=== PATIENT | male | born 1945 | race Caucasian/White ===

== ENCOUNTER 2017-03-31 05:59 | Day surgery (SDC) | payer MEDICARE, OTHER ==
[2017-03-24 12:13] LABS: HEMATOCRIT 37.1 % (40.0-51.0); HEMOGLOBIN 11.9 g/dL (13.6-17.8)
[2017-03-24 12:28] LABS: CALCIUM, SERUM 9.2 MG/DL (8.5-10.4); CHLORIDE, SERUM 102 MMOL/L (96-112); CO2 (CARBON DIOXIDE) 28 MMOL/L (24-34); POTASSIUM, SERUM 4.3 MMOL/L (3.5-5.3); SODIUM, SERUM 137 MMOL/L (135-148)
[2017-03-24 12:29] LABS: BUN (BLOOD UREA NITROGEN) 26 MG/DL (6-23); CREATININE 1.43 MG/DL (0.70-1.30); GFR AFRICAN AMERICAN 57 ML/MIN (>=60); GFR NON AFRICAN AMERICAN 49 ML/MIN (>=60); GLUCOSE, SERUM 168 MG/DL (60-99)
--- NOTE | ~2017-03-31 | OP ---
Record Of Operation [facility] [address] [place]. [address] NAME: LUIS ORLANDO : 45 STATUS : [facility]#: [id number] AGE: 71 ADM/REG DATE : 03/31/17 MR#: [id number] REPORT SERV DATE: 04/06/17 DICTATED BY: AGUILA MCKAY DATE: 03/31/17 REPORT STATUS : Draft TRANSCRIBED BY: MODL DATE: 03/31/17 DATE OF PROCEDURE: 03/31/2017 SURGEON: Aguila Mckay MD OPERATIVE [employer]IN[employer]LTRY INSPECTOR: SHANNAN Shaffer. COMPLICATIONS: None. ESTIMATED BLOOD LOSS: Minimal. DISPOSITION: Stable to recovery room. ANESTHESIA: General. PREOPERATIVE DIAGNOSES: 1. Right shoulder pain. 2. Full-thickness supraspinatus rotator cuff tear. 3. Degenerative labral tear. 4. Subacromial impingement. 5. Acromioclavicular joint osteoarthritis with impingement. POSTOPERATIVE DIAGNOSES: 1. Right shoulder pain. 2. Full-thickness supraspinatus rotator cuff tear. 3. Degenerative labral tear. 4. Subacromial impingement. 5. Acromioclavicular joint osteoarthritis with impingement. OPERATIVE PROCEDURE: 1. Right shoulder examination under anesthesia. 2. Right shoulder arthroscopy. 3. Extensive debridement of degenerative labral tear. 4. Full-thickness supraspinatus rotator cuff repair using a single row technique. 5. Subacromial decompression. 6. Distal clavicular resection (approximately 1 cm). DESCRIPTION OF PROCEDURE: The diagnoses listed above as well as recommended surgical procedure, risks, and benefits, thereof discussed in full detail with Luis Orlando and family on the morning of 03/31/2017. The patient and family asked appropriate questions, which were answered to their satisfaction. Informed consent was signed, witnessed, and placed in the chart. The right upper extremity was marked for confirmation and the patient was wheeled to the operative arena where general anesthesia was administered. The patient was placed in a lateral decubitus position with an axillary roll in place. All nonoperative extremities were well padded and secured for the duration of case. Record Of Operation [facility] [address] [place]. [address] NAME: LUIS ORLANDO : 45 STATUS : [facility] PAT#: [id number] AGE: 71 ADM/REG DATE : 03/31/17 MR#: [id number] REPORT SERV DATE: 04/06/17 DICTATED BY: AGUILA MCKAY DATE: 03/31/17 REPORT STATUS : Draft TRANSCRIBED BY: ROBINA DATE: 03/31/17 The right upper extremity was examined under anesthesia and then placed in 5 pounds of longitudinal traction, and prepped and draped in typical orthopedic sterile fashion. A surgical pause was performed confirming both the correct the patient, as well as proper surgical site, and procedure. All present were in agreement. The patient received appropriate antibiotics for perioperative antibiosis. All standard anatomic landmarks, as well as arthroscopic portal sites were demarcated using a sterile marking pen. Next, 15 mL of 0.5% Marcaine with epinephrine was injected in standard posterior, lateral, and anterior portal sites. An 11 blade was used to establish the posterior portal through which an arthroscopic cannula and blunt obturator were inserted atraumatically into the glenohumeral joint. A full diagnostic arthroscopy was performed. The subscapularis, middle, and inferior glenohumeral ligaments were within normal limits. The axillary pouch appeared normal. The biceps tendon was healthy as it traversed in the bicipital groove with only mild fraying at its insertion on the labral complex. There was no biceps instability noted. The labrum showed evidence for degenerative tearing posteriorly, superiorly, and anteriorly. An arthroscopic shaver used to perform an extensive debridement of all damaged labral tissue, trimming it back down to a stable rim, and flushed with the articular surface of the glenoid. The articular surface of the glenoid and the humeral head appeared to be in good condition without evidence for significant chondromalacia or other injury. The rotator cuff was evaluated from the articular side and confirmed to show evidence for full-thickness supraspinatus rotator cuff tear with mild retraction. An arthroscopic shaver used to debride all damaged tissue in preparation for rotator cuff repair from above. Next, the arthroscope was withdrawn from the glenohumeral joint and inserted into the subacromial space. The full-thickness rotator cuff tear was observed from the bursal surface and confirmed to involve the majority of the leading edge of the supraspinatus rotator cuff tendon. The greater tuberosity was prepared for optimal biologic healing and anchor insertion. Six suture tapes were passed through the leading edge of the rotator cuff tendon. Two 4.75 SwiveLock were used to secure the rotator cuff back down to the greater tuberosity with excellent security. The repair was tested and found to be very secure without any instability whatsoever. Full coverage of the humeral head and greater tuberosity footprint was obtained. Next, all soft tissues were removed from the under surface of the acromion demonstrating evidence for downward reflection of the anterolateral border of the acromion, with obvious mechanical subacromial impingement, and narrowing of the subacromial space. There was also hypertrophic arthritic change at the acromioclavicular joint with downward reflection of distal clavicle, and obvious mechanical impingement on the bursal surface of the rotator cuff muscle belly. An arthroscopic bur was used to perform full subacromial decompression without difficulty. This opened up the subacromial space nicely. A distal clavicular resection of the distal most 8 mm of clavicle and the proximal most 2 mm of acromion was performed. This achieved a 1 cm gap at the at the acromioclavicular joint and opened up the space nicely. At this juncture, all arthroscopic instruments, excess fluid, and debris were removed from Record Of Operation [address] [address] NAME: LUIS ORLANDO : 45 STATUS : [facility]#: [id number] AGE: 71 ADM/REG DATE : 03/31/17 MR#: [id number] REPORT SERV DATE: 04/06/17 DICTATED BY: AGUILA MCKAY DATE: 03/31/17 REPORT STATUS : Draft TRANSCRIBED BY: ROBINA DATE: 03/31/17 the subacromial space. The portals were closed with 3-0 Monocryl in the subcuticular layers and Steri-Strips on the skin. A sterile dressing was secured with Medipore tape. The patient was placed in UltraSling for temporary immobilization. The patient was then awakened from anesthesia without difficulty and transferred to the postanesthesia care unit in stable condition, where his postoperative exam was within normal limits. A lengthy discussion was held the patient's family detailing all operative findings, as well as procedures performed, with all questions answered to their satisfaction. REY/ROBINA Aguila Mckay M.D. / [id number] CC: Aguila Mckay M.D. [facility]
[~2017-03-31 05:59] MED LIST: 5-HTP100 MG PO; ACET500CAP PO; ALCOHOL OT; ALPHA LIPOIC PO; AMYLASE PO; ASAB PO; ATEN25 PO; B12250T PO; BACDS PO; COREG6 PO; CRESTOR20 MG PO; CRESTOR40 MG PO; DOK100 MG PO; FISH-EPA1000 MG PO; GLUCOPHXR7 PO; GLUCPH PO; HALF81 PO; HCTZ25B PO; LISINOPRIL40 MG PO; LOVENOX40 SC; MAGNESIUM/ZINC PO; MCZ25 PO; MELATONIN5 M1 PO; METANX PO; OS500+D PO; OXYCOD PO; OXYCODONE HCL 10MG PO; OXYCONTIN15 MG PO; PANCRELIPASE OR; PCET PO; PLAVIX PO; PR25 PO; PRILO PO; PRIN10 PO; PROAIRRESP INH; PROSCAR5 PO; PROTONIX PO; PROVHFA INH; ROXICET1 TAB PO; SILTUSSIN100 MG/5 M PO; SPIRO25 PO; SUCR PO; SYMBICORT 80/4.1 INH INH; TRAZ50 PO; TRICOR145 PO; VENTOLIN HFA INH; VIAGRA100 MG PO; VITAMIN B-121000 MC1 SL; VITAMIN D31000 UNIT PO; WELL100 PO; X5 PO; ZANAFLEX2 MG PO; ZOL100 PO; [UNRECOGNIZED DRUG - CODE]; [UNRECOGNIZED DRUG - CODE] PO; [UNRECOGNIZED DRUG - OTHER] PO
== END 2017-03-31 15:28 | disposition home or self-care (01) ==
LOC: SDC 05:59
PROVIDERS: Specialist
PROC: 0RNJ4ZZ Release Right Shoulder Joint, Percutaneous Endoscopic Approach (ICD-10-PCS; 2017-03-31)
PROC: 0PB94ZZ Excision of Right Clavicle, Percutaneous Endoscopic Approach (ICD-10-PCS; 2017-03-31)
PROC: 0RBJ4ZZ Excision of Right Shoulder Joint, Percutaneous Endoscopic Approach (ICD-10-PCS; principal; 2017-03-31 08:00)
PROC: 0LQ14ZZ Repair Right Shoulder Tendon, Percutaneous Endoscopic Approach (ICD-10-PCS; 2017-03-31 08:00)
DX: M75.121 Complete rotator cuff tear or rupture of right shoulder, not specified as traumatic (principal); M75.41 Impingement syndrome of right shoulder; M25.811 Other specified joint disorders, right shoulder; F41.9 Anxiety disorder, unspecified; I10 Essential (primary) hypertension; E11.40 Type 2 diabetes mellitus with diabetic neuropathy, unspecified; G47.33 Obstructive sleep apnea (adult) (pediatric); F03.90 Unspecified dementia, unspecified severity, without behavioral disturbance, psychotic disturbance, mood disturbance, and anxiety; I25.10 Atherosclerotic heart disease of native coronary artery without angina pectoris; J44.9 Chronic obstructive pulmonary disease, unspecified; M19.011 Primary osteoarthritis, right shoulder; Z79.82 Long term (current) use of aspirin; Z79.899 Other long term (current) drug therapy; Z79.891 Long term (current) use of opiate analgesic; Z88.5 Allergy status to narcotic agent; Z88.8 Allergy status to other drugs, medicaments and biological substances; Z82.49 Family history of ischemic heart disease and other diseases of the circulatory system; Z87.891 Personal history of nicotine dependence; Z98.890 Other specified postprocedural states; Z98.1 Arthrodesis status
CPT/HCPCS: 80048; 82962; 85014; 85018; 93005; A9270-GY; C1713; J0690; J1170; J2250; J2370; J2405; J2550; J3010